=== PATIENT | male | born 1955 | race Caucasian/White ===

== ENCOUNTER 2016-11-12 17:11 | Emergency (ER) | payer BC, OTHER ==
[~2016-11-12] VITALS: Ht 177.8 cm; Wt 114.5 kg
[2016-11-12 17:27] VITALS: TEMP 37.1; Ht 177.8 cm; Wt 114.5 kg
[2016-11-12] MEDS ORDERED: ONDANSETRON INJ 2 MG/ML 2 ML VIAL IV STA (18:37)
[2016-11-12] MEDS ORDERED: SODIUM CHLORIDE 0.9% 1000ML 1,000 ML IV STA ×3 (18:37→20:04)
--- NOTE | 2016-11-12 18:47 | EMERGENCY ROOM VISIT NOTE ---
History Report prepared by Luis Armando: Jet Holly Under the Supervision of: Dr. Ranjan Blake M.D. First contact with patient: 18:33 Chief Complaint: HYPERGLYCEMIA Stated Complaint: HEADACHE, EYES HURT, DIABETIC NUMBERS UP Nursing Triage Summary: Pt reports BSG was 474 around 1400. Pt reports LEAL, eye pain, frequent urination. compliant with diet and Insulin. Refreed by PCP. "I just don't feel good. I can't get it in check". Insulin at 1000 History of Present Illness The patient is a 61 year old male who presents to the Emergency Room with complaints of persistent elevated blood sugar levels beginning about 3 weeks ago. He notes that his sugars have been in the 400s for the past 3 weeks, and that prior to this, they were in the 200s. He has not seen his PCP in the last 3 weeks since the onset of his symptoms, but was referred to the ER upon calling today. The patient reports having increased urination, increased thirst , chills, headaches, and eye pain. He denies having fever or recent trauma. The patient notes he has heart and lung issues, and that he has a cough due to his lung conditions. The patient states he had been taking Metformin in the past, but stopped taking it over 1 year ago. He does use insulin. Source of History: patient Onset: about 3 weeks ago Position: other (global) Symptom Intensity: blood sugar in the 400s Quality: other (hyperglycemia) Timing: other (persistent) Associated Symptoms: + chills, + headache, No fevers Note: The patient has had increased urination, increased thirst, and eye pain. Review of Systems See HPI for pertinent positives & negatives. A total of 10 systems reviewed and were otherwise negative. Past Medical & Surgical Medical Problems: (1) History of diabetes mellitus (2) History of emphysema (3) History of heart disease (4) History of hypertension Family History FH: heart disease FHx: gallbladder disease FHx: lung disease Hypertension Social History Smoking Status: Never Smoker Smokeless Tobacco Use: No Housing Status: lives with significant other Current/Historical Medications Scheduled Amitriptyline Hcl (Elavil), 25 MG PO HS Amoxicillin & Pot Clavulanate (Augmentin 875-125 mg), 875 MG PO BID Fenofibrate (Tricor ), 134 MG PO DAILY Glipizide (Glucotrol), 20 MG PO BID Insulin Glargine (Lantus), 50 UNITS SC BID Lisinopril (Zestril), 20 MG PO QAM Metoprolol Tartrate (Lopressor) (Lopressor), 75 TAB PO QAM Metoprolol Tartrate (Lopressor) (Lopressor), 50 MG PO QPM Omeprazole (Prilosec), 20 MG PO HS Rosuvastatin Calcium (Crestor), 20 MG PO HS Solifenacin (Vesicare), 5 MG PO DAILY Scheduled PRN Baclofen (Lioresal), 20 MG PO BID PRN for Muscle Spasms Allergies Coded Allergies: Albuterol (Unverified Allergy, Unknown, itchy/cough, 11/12/16) Ipratropium (Unverified Allergy, Unknown, itchy/cough, 11/12/16) Lecithin (Unverified Allergy, Unknown, itchy/cough, 11/12/16) Physical Exam Vital Signs Date Time Temp Pulse Resp B/P Pulse Ox O2 Delivery O2 Flow Rate FiO2 11/12/16 22:33 84 133/80 93 11/12/16 21:24 76 18 129/74 93 Room Air 11/12/16 19:30 86 11/12/16 19:26 83 16 133/76 95 Room Air 11/12/16 19:01 95 Room Air 11/12/16 17:27 37.1 89 18 134/68 95 Room Air Physical Exam GENERAL: Patient is in no acute distress. HEENT: No acute trauma, normocephalic atraumatic, mucous membranes dry, no nasal congestion, no scleral icterus, no throat erythema. NECK: No stridor, no adenopathy, no meningismus, trachea is midline. LUNGS: Decreased breath sounds especially at the left base; no wheezing; no respiratory distress. HEART: Irregular without any murmurs; normal rate. ABDOMEN: Soft; tenderness in the left lower quadrant; bowel sounds positive, no hernias, no peritonitis. EXTREMITIES: No cyanosis or edema, full range of motion of all the joints without pain or difficulty, no signs for acute trauma. No cellulitis. NEUROLOGIC: Oriented x 3, no acute motor or sensory deficits, no focal weakness. SKIN: No rash, no jaundice, no diaphoresis. GENITALS: Uncircumcised; no scrotal cellulitis; some balanitis noted and some erythema to the foreskin. Medical Decision & Procedures ER Provider Diagnostic Interpretation: Radiology results are stated below per my review and radiologist interpretation: CHEST ONE VIEW PORTABLE FINDINGS: The heart is at the upper limits of normal in size. There is elevation of the left hemidiaphragm. There is mild central vascular prominence. There are bibasal atelectatic changes.[ There is no significant pleural fluid. IMPRESSION: 1. Central vascular prominence 2. Elevation left hemidiaphragm 3. Bibasilar opacities likely atelectatic Electronically signed by: Philip Handy M.D. 11/12/2016 6:57 PM Dictated Date/Time: 11/12/2016 6:[address] SCAN OF THE ABDOMEN AND PELVIS WITHOUT CONTRAST FINDINGS: Lower chest: There is elevation left hemidiaphragm. There are basilar atelectatic changes. Liver: The unenhanced liver is normal in size, contour, and attenuation. There is no intrahepatic biliary ductal dilatation. Gallbladder: Surgically absent Spleen: Normal in size and attenuation. Pancreas: Unremarkable. Adrenal glands: Unremarkable. Kidneys: There is bilateral perinephric stranding. No renal, ureteral, or bladder calculi are visualized. Bowel: There are no transition zones indicate bowel obstruction. There is colonic diverticulosis. There are no acute peridiverticular inflammatory changes. The appendix is not visualized with certainty. There are no pericecal inflammatory changes Peritoneum: There is no intraperitoneal free air or abdominal ascites. There are bilateral fat-containing inguinal hernias left larger than right. There is a tiny fat-containing umbilical hernia. Vasculature: The abdominal aorta is normal in course and caliber. Adenopathy: None. Pelvic viscera: The bladder, and pelvic viscera are unremarkable. Skeletal structures: No destructive osseous lesions are seen. IMPRESSION: 1. Moderate elevation of the left hemidiaphragm 2. No evidence of bowel obstruction. No evidence of free air 3. Colonic diverticulosis. No evidence of acute peridiverticular inflammatory change 4. No renal, ureteral, or bladder calculi identified. 5. Bilateral fat-containing inguinal hernias Electronically signed by: Philip Handy M.D. 11/12/2016 7:28 PM Dictated Date/Time: 11/12/2016 7:23 PM Laboratory Results 11/12/16 19:00 Red Blood Count 5.28, Mean Corpuscular Volume 80.1, Mean Corpuscular Hemoglobin 29.0, Mean Corpuscular Hemoglobin Concent 36.2, Mean Platelet Volume 11.8, Neutrophils (%) (Auto) 50.8, Lymphocytes (%) (Auto) 39.9, Monocytes (%) (Auto) 6.7, Eosinophils (%) (Auto) 1.8, Basophils (%) (Auto) 0.6, Neutrophils # (Auto) 4.41, Lymphocytes # (Auto) 3.46, Monocytes # (Auto) 0.58, Eosinophils # (Auto) 0.16, Basophils # (Auto) 0.05 11/12/16 19:00 Test 11/12/16 19:00 11/12/16 20:28 11/12/16 21:51 White Blood Count 8.68 K/uL (4.8-10.8) Red Blood Count 5.28 M/uL (4.7-6.1) Hemoglobin 15.3 g/dL (14.0-18.0) Hematocrit 42.3 % (42-52) Mean Corpuscular Volume 80.1 fL (80-100) Mean Corpuscular Hemoglobin 29.0 pg (25-34) Mean Corpuscular Hemoglobin Concent 36.2 g/dl (32-36) Platelet Count 256 K/uL (130-400) Mean Platelet Volume 11.8 fL (7.4-10.4) Neutrophils (%) (Auto) 50.8 % Lymphocytes (%) (Auto) 39.9 % Monocytes (%) (Auto) 6.7 % Eosinophils (%) (Auto) 1.8 % Basophils (%) (Auto) 0.6 % Neutrophils # (Auto) 4.41 K/uL (1.4-6.5) Lymphocytes # (Auto) 3.46 K/uL (1.2-3.4) Monocytes # (Auto) 0.58 K/uL (0.11-0.59) Eosinophils # (Auto) 0.16 K/uL (0-0.5) Basophils # (Auto) 0.05 K/uL (0-0.2) RDW Standard Deviation 39.0 fL (36.4-46.3) RDW Coefficient of Variation 13.4 % (11.5-14.5) Immature Granulocyte % (Auto) 0.2 % Immature Granulocyte # (Auto) 0.02 K/uL (0.00-0.02) Anion Gap 12.0 mmol/L (3-11) Est Creatinine Clear Calc Drug Dose 104.8 ml/min Estimated GFR () 100.4 Estimated GFR (Non- 86.7 BUN/Creatinine Ratio 19.4 (10-20) Calcium Level 9.0 mg/dl (8.5-10.1) Total Bilirubin 0.3 mg/dl (0.2-1) Aspartate Amino Transf (AST/SGOT) 13 U/L (15-37) Alanine Aminotransferase (ALT/SGPT) 22 U/L (12-78) Alkaline Phosphatase 91 U/L (45-117) Troponin I < 0.015 ng/ml (0-0.045) Total Protein 7.6 gm/dl (6.4-8.2) Albumin 3.7 gm/dl (3.4-5.0) Globulin 3.9 gm/dl (2.5-4.0) Albumin/Globulin Ratio 0.9 (0.9-2) Beta-Hydroxybutyric Acid 3.73 mg/dL (0.2-2.81) Thyroid Stimulating Hormone (TSH) 2.170 uIu/ml (0.300-4.500) Urine Color YELLOW Urine Appearance CLEAR (CLEAR) Urine pH 6.5 (4.5-7.5) Urine Specific Murray 1.025 (1.000-1.030) Urine Protein NEG (NEG) Urine Glucose (UA) 3+ (NEG) Urine Ketones NEG (NEG) Urine Occult Blood NEG (NEG) Urine Nitrite NEG (NEG) Urine Bilirubin NEG (NEG) Urine Urobilinogen NEG (NEG) Urine Leukocyte Esterase NEG (NEG) Bedside Glucose 189 mg/dl (70-99) Laboratory results reviewed by me. Medications Administered Medications (Trade) Dose Ordered Sig/Shon Route Start Time Stop Time Status Last Admin Dose Admin Ondansetron HCl 4 mg 4 mg NOW STAT IV 11/12/16 18:37 11/12/16 18:43 DC 11/12/16 19:13 4 MG Sodium Chloride 1,000 ml @ 999 mls/hr Q1H1M STAT IV 11/12/16 18:37 11/12/16 19:37 DC 11/12/16 19:12 999 MLS/HR Sodium Chloride (Nss 1000ml) 1,000 ml @ 999 mls/hr Q1H1M STAT IV 11/12/16 20:04 11/12/16 21:04 DC 11/12/16 20:25 999 MLS/HR Insulin Human Regular (novoLIN-R U-100 PER UNIT) 6 units NOW STAT IV 11/12/16 21:08 11/12/16 21:10 DC 11/12/16 21:22 6 UNITS Amoxicillin/ Clavulanate Potassium (Augmentin Tab) 875 mg ONE ONCE PO 11/12/16 22:15 11/12/16 22:16 DC 11/12/16 22:24 875 MG ECG Indication: other (hyperglycemia) Rate (beats per minute): 85 Rhythm: normal sinus Findings: nonspecific-ST abn, no acute ischemic change, no ectopy ED Course 1835: The patient was evaluated in room B12B. A complete history and physical exam was performed. 1836: Ordered NSS 1,000 ml @ 200 mls/hr IV, NSS 1,000 ml @ 999 mls/hr IV, and Zofran Inj 4 mg IV. 2003: Ordered NSS 1,000 ml @ 999 mls/hr IV. 2107: Ordered Insulin Human Regular 6 units IV. 2207: I reassessed the patient and he is feeling better. His sugars are now in the 100s. He would like to go home. 5: Ordered Augmentin Tab 875 mg PO. 0: Reevaluated the patient. Discussed results and discharge instructions: He verbalized understanding and agreement. The patient is ready for discharge. Medical Decision Differentials include dehydration, renal failure, electrolyte imbalance, pneumonia, UTI, diverticulitis, medication noncompliance, and cellulitis. There is no leukocytosis or concerning anemia. No kidney failure. His sugar is elevated in the 3-400 range. Sodium somewhat low, likely pseudohyponatremia. There was no hepatitis. Urinalysis does not show infection. Chest x-ray does not show pneumonia. EKG shows a sinus rhythm, no acute ischemia. Cardiac enzyme testing times one is not consistent with acute cardiac injury. Abdominal and pelvis CT shows some chronic findings, no acute infectious process seen, no diverticulitis. The patient appears to be in a euthyroid state. The patient received IV saline, IV Zofran. He was eventually given a small dose of IV insulin. He was given oral Augmentin for the balanitis noted on exam. The patient looks well, his sugar is now in the 100 range, he feels markedly improved. He is being discharged to follow with his doctors office as he may need some adjustment in his diabetic regimen. Patient will be on Augmentin for the balanitis, he will continue the cream given to him by his doctor's office. The patient was encouraged to return here for worsening symptoms or if not improving. Impression Primary Impression: Hyperglycemia Additional Impressions: Dehydration Balanitis Scribe Attestation The scribe's documentation has been prepared under my direction and personally reviewed by me in its entirety. I confirm that the note above accurately reflects all work, treatment, procedures, and medical decision making performed by me. Departure Information Dispostion Home / Self-Care Prescriptions Amoxicillin & Pot Clavulanate (Augmentin 875-125 mg) 1 Tab Tab 875 MG PO BID for 10 Days, #20 TAB Prov: Ranjan Blake M.D. 11/12/16 Referrals No Doctor, Assigned (PCP) Patient Instructions My [facility] Additional Instructions augmentin 2x per day for 10 days continue the cream stay well hydrated talk with your doctor tomorrow for an appt this week and recheck keep a watch on your sugars return if worsening lab testing was ok as discussed imaging was all ok as well Problem Qualifiers
--- NOTE | 2016-11-12 18:58 | DIAGNOSTIC IMAGING REPORT ---
CHEST ONE VIEW PORTABLE CLINICAL HISTORY: EVALUATE ALTERED MENTAL STATUS/WEAKNESS COMPARISON STUDY: No previous studies for comparison. FINDINGS: The heart is at the upper limits of normal in size. There is elevation of the left hemidiaphragm. There is mild central vascular prominence. There are bibasal atelectatic changes.[ There is no significant pleural fluid. IMPRESSION: 1. Central vascular prominence 2. Elevation left hemidiaphragm 3. Bibasilar opacities likely atelectatic Electronically signed by: Philip Handy M.D. 11/12/2016 6:57 PM Dictated Date/Time: 11/12/2016 6:56 PM
[2016-11-12 19:01] VITALS: O2SAT 95
[2016-11-12 19:21] LABS: BASO % 0.6 %; BASO ABS # 0.05 K/uL (0-0.2); COMPLETE YES; EOS % 1.8 %; HEMATOCRIT 42.3 % (42-52); IG% 0.2 %; LYMPH % 39.9 %; LYMPH ABS # 3.46 K/uL (1.2-3.4); MEAN CELL VOLUME 80.1 fL (80-100); MEAN CORPUSCULAR HGB CONC 36.2 g/dl (32-36); MEAN PLATELET VOLUME 11.8 fL (7.4-10.4); MONO % 6.7 %; NEUT % 50.8 %; PLATELET COUNT 256 K/uL (130-400); RED BLOOD COUNT 5.28 M/uL (4.7-6.1); WHITE BLOOD COUNT 8.68 K/uL (4.8-10.8)
--- NOTE | 2016-11-12 19:30 | DIAGNOSTIC IMAGING REPORT ---
CT SCAN OF THE ABDOMEN AND PELVIS WITHOUT CONTRAST CLINICAL HISTORY: Severe abdominal pain COMPARISON STUDY: No previous studies for comparison. TECHNIQUE: CT scan of the abdomen and pelvis was performed from the lung bases to the proximal femurs. Images are reviewed in the axial, sagittal, and coronal planes. IV contrast was not administered for this examination. CT DOSE: 1254.78 mGy.cm FINDINGS: Lower chest: There is elevation left hemidiaphragm. There are basilar atelectatic changes. Liver: The unenhanced liver is normal in size, contour, and attenuation. There is no intrahepatic biliary ductal dilatation. Gallbladder: Surgically absent Spleen: Normal in size and attenuation. Pancreas: Unremarkable. Adrenal glands: Unremarkable. Kidneys: There is bilateral perinephric stranding. No renal, ureteral, or bladder calculi are visualized. Bowel: There are no transition zones indicate bowel obstruction. There is colonic diverticulosis. There are no acute peridiverticular inflammatory changes. The appendix is not visualized with certainty. There are no pericecal inflammatory changes Peritoneum: There is no intraperitoneal free air or abdominal ascites. There are bilateral fat-containing inguinal hernias left larger than right. There is a tiny fat-containing umbilical hernia. Vasculature: The abdominal aorta is normal in course and caliber. Adenopathy: None. Pelvic viscera: The bladder, and pelvic viscera are unremarkable. Skeletal structures: No destructive osseous lesions are seen. IMPRESSION: 1. Moderate elevation of the left hemidiaphragm 2. No evidence of bowel obstruction. No evidence of free air 3. Colonic diverticulosis. No evidence of acute peridiverticular inflammatory change 4. No renal, ureteral, or bladder calculi identified. 5. Bilateral fat-containing inguinal hernias Electronically signed by: Philip Handy M.D. 11/12/2016 7:28 PM Dictated Date/Time: 11/12/2016 7:23 PM
[2016-11-12] MEDS ORDERED: GLIP10TA9 PO (19:37)
[2016-11-12] MEDS ORDERED: INSDGI SC (19:37)
[2016-11-12] MEDS ORDERED: METO25TA56 PO ×2 (19:37)
[2016-11-12] MEDS ORDERED: VSC/5 PO (19:48)
[2016-11-12] MEDS ORDERED: LISI-725 PO (19:48)
[2016-11-12] MEDS ORDERED: ROSU40TA PO (19:48)
[2016-11-12] MEDS ORDERED: AMT50 PO (19:48)
[2016-11-12] MEDS ORDERED: FENO134C2 PO (19:48)
[2016-11-12] MEDS ORDERED: METO50TA16 PO ×2 (19:48)
[2016-11-12] MEDS ORDERED: PRLSR20 PO (19:48)
[2016-11-12] MEDS ORDERED: BACL10TA PO (19:48)
[2016-11-12 20:40] LABS: ALB/GLOB RATIO 0.9 (0.9-2); ALKALINE PHOSPHATASE 91 U/L (45-117); ALT/SGPT 22 U/L (12-78); BLOOD UREA NITROGEN 18 mg/dl (7-18); BUN/CREATININE RATIO 19.4 (10-20); CARBON DIOXIDE 23 mmol/L (21-32); CHLORIDE 94 mmol/L (98-107); CREATININE 0.95 mg/dl (0.60-1.40); POTASSIUM 4.4 mmol/L (3.5-5.1); SODIUM 129 mmol/L (136-145)
[2016-11-12 21:01] LABS: AST/SGOT 13 U/L (15-37)
[2016-11-12] MEDS ORDERED: NovoLIN-R INSULIN PER UNIT CHARGE IV STA (21:08)
[2016-11-12 21:38] LABS: URINE APPEARANCE CLEAR (CLEAR); URINE BILIRUBIN NEG (NEG); URINE COLOR YELLOW; URINE NITRITE NEG (NEG); URINE PH 6.5 (4.5-7.5); URINE SPECIFIC GRAVITY 1.025 (1.000-1.030); UROBILINOGEN NEG (NEG); ZZUR CULT IF INDIC CLEAN CATCH NO
[2016-11-12 21:44] LABS: MANUAL MICROSCOPIC REQUIRED? NO; REVIEW REQ? NO
[2016-11-12 22:10] LABS: GLUCOSE 370 mg/dl (70-99)
[2016-11-12] MEDS ORDERED: AMOX875T PO (22:13)
[2016-11-12] MEDS ORDERED: AMOXICILLIN/CLAVULANATE TAB 875 MG TAB PO ONE (22:15)
[2016-11-12 22:28] LABS: BETA-HYDROXYBUTYRATE 3.73 mg/dL (0.2-2.81)
[2016-11-12 22:33] VITALS: BP 133/80; PULSE 84; O2SAT 93
== END 2016-11-12 22:33 | disposition home or self-care (01) ==
LOC: C.EDB 17:15
DX: E11.65 Type 2 diabetes mellitus with hyperglycemia (principal); E86.0 Dehydration; N48.1 Balanitis; J43.9 Emphysema, unspecified; I51.9 Heart disease, unspecified; I10 Essential (primary) hypertension; Z82.49 Family history of ischemic heart disease and other diseases of the circulatory system; Z83.79 Family history of other diseases of the digestive system; Z83.6 Family history of other diseases of the respiratory system; Z79.4 Long term (current) use of insulin; Z79.899 Other long term (current) drug therapy